=== PATIENT | female | born 1945 | race Caucasian/White ===

== ENCOUNTER 2017-10-21 18:06 | Emergency (ER) | payer MEDICARE, OTHER ==
--- NOTE | 2017-10-21 21:39 | ED Physician Documentation ---
History of Present Illness - Stated complaint Stated Complaint: BLOOD PRESSURE - Chief complaint Chief Complaint: Cardiac - History obtained from History obtained from: Patient - Additonal information Additional information: 71-year-old female presents the emergency department for evaluation of and elevated blood pressure. The patient was recently diagnosed with elevated blood pressure and was started on losartan. The patient was also taken off her Effexor secondary to concern for a prolonged QTC. This occurred over 2 months ago. The patient is in town visiting. Today the patient felt dizzy. The patient had her blood pressure checked at the fire department and was told it was high but does not know the number and was told to come to the emergency department. Presently the patient is denying any acute symptoms. The patient does report feeling anxious but currently is denying headache, dizziness, neck pain, focal motor weakness, chest pain, dyspnea on exertion. Review of Systems Constitutional: denies: Fever, Chills Eyes: denies: Discharge Ears: denies: Ear pain Nose: denies: Rhinorrhea / runny nose Throat: denies: Sore throat Cardiac: denies: Chest pain / pressure Respiratory: denies: Cough GI: denies: Abdominal Pain : denies: Dysuria Skin: denies: Rash Musculoskeletal: denies: Neck pain Neurologic: denies: Generalized weakness, Focal weakness, Numbness, Difficulty speaking PD PAST MEDICAL HISTORY - Past Medical History Past Medical History: Yes Cardiovascular: Hypertension Endocrine/Autoimmune: HyPOthyroidism Psych: Depression, Anxiety - Past Surgical History 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 HEENT: Tonsil/Adenoidectomy - Present Medications Home Medications: Ambulatory Orders Medication Instructions Recorded Confirmed Cyanocobalamin (Vitamin B-12) 10/21/17 [B-12] Levothyroxine [Synthroid] 125 mcg PO QDAC 10/21/17 10/21/17 Lorazepam [Ativan] 0.5 mg ORAL DAILY 10/21/17 10/21/17 Losartan [Cozaar] 50 mg PO DAILY 10/21/17 10/21/17 Venlafaxine [Effexor] 37.5 mg PO BID 10/21/17 10/21/17 busPIRone [Buspar] 15 mg PO BID 10/21/17 10/21/17 - Allergies Allergies/Adverse Reactions: Allergies Allergy/AdvReac Type Severity Reaction Status Date / Time No Known Drug Allergies Allergy Verified 08/23/18 18:14 - Social History Does the pt smoke?: No Smoking Status: Never smoker Does the pt drink ETOH?: Yes Does the pt have substance abuse?: No - Immunizations Immunizations are current?: Yes PD ED PE NORMAL - General General: Alert and oriented X 3, No acute distress - HEENT HEENT: Atraumatic, PERRL, EOMI, Ears normal - Neck Neck: Supple, no meningeal sign - Cardiac Cardiac: RRR, Strong equal pulses - Respiratory Respiratory: No respiratory distress - Abdomen Abdomen: Soft, Non tender, Non distended - Derm Derm: Normal color - Extremities Extremities: No deformity, No edema - Neuro Neuro: Alert and oriented X 3, 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 The patient has declined any further testing currently, she reports having blood work recently. Since her blood pressures down she would prefer to be discharged home and follow-up with her primary care when she returns to [place]. I again offered her further workup in the emergency department but the patient refused. The patient will follow up as an outpatient. I discussed warning signs and recommended returning to the emergency department immediately for any worsening or any concerns. - Sepsis Event Vital Signs: Vital Signs - 24 hr 10/21/17 10/21/17 10/21/17 18:10 21:03 21:47 Temperature 36.2 C L 36.3 C L Heart Rate 65 66 62 Respiratory 16 19 16 Rate Blood Pressure 127/84 H 147/78 H 151/92 H O2 Saturation 100 99 100 Oxygen O2 Source Room air Departure - Departure Disposition: 01 Home, Self Care Clinical Impression: Elevated blood pressure reading Condition: Good Instructions: Hypertension Dc Comments: Please follow-up with your primary care physician for ongoing blood pressure management. Please return to the emergency department immediately for worsening symptoms or any concerns Discharge Date/Time: 10/21/17 21:48
[2017-10-21 21:48] VITALS: BP 151/92
== END 2017-10-21 21:48 | disposition home or self-care (01) ==
LOC: ED 18:06
DX: I10 Essential (primary) hypertension (principal); E03.9 Hypothyroidism, unspecified
CPT/HCPCS: 99282; 99283